=== PATIENT | male | born 1940 | race Caucasian/White ===

== ENCOUNTER 2019-02-24 14:07 | Inpatient (IN) | payer OTHER, SELFPAY ==
[~2019-02-24] VITALS: Ht 177.8 cm; Wt 82.5 kg
[~2019-02-24 14:07] MED LIST: ASPI81CH PO; ATOR10 PO; GABA300 PO; INDOMETHACIN ER75 MG PO; INSULANPEN SC; LOSARTAN POTAS100 MG PO; Novolog100 UNIT/1 SC; POTCHL20ER PO; Zantac150 MG PO
[2019-02-24 14:51] LABS: BASOPHILS ABSOLUTE AUTO 0.03 K/mm3 (0.00-0.23); BASOPHILS PERCENT AUTO 0 % (0-2); EOSINOPHILS ABSOLUTE AUTO 0.04 K/mm3 (0.00-0.68); EOSINOPHILS PERCENT AUTO 0 % (0-6); Hematocrit 43.9 % (37.0-53.0); IMMATURE GRAN ABSOLUTE AUTO 0.05 K/mm3 (0.00-0.10); IMMATURE GRAN PERCENT AUTO 1 % (0-1); LYMPHOCYTES ABSOLUTE AUTO 0.56 K/mm3 (0.84-5.20); LYMPHOCYTES PERCENT AUTO 6 % (21-46); MONOCYTES ABSOLUTE AUTO 0.76 K/mm3 (0.16-1.47); MONOCYTES PERCENT AUTO 8 % (4-13); Mean Corpuscular HGB 29.4 pg (26.0-34.0); Mean Corpuscular HGB Conc 34.2 g/dL (31.5-36.5); Mean Corpuscular Volume 86 fL (80-100); Mean Platelet Volume 9.8 fL (9.1-12.4); NEUTROPHILS ABSOLUTE AUTO 8.41 K/mm3 (1.96-9.15); NEUTROPHILS PERCENT AUTO 85 % (41-73); Platelet Count 289 K/mm3 (150-400); RDW Coefficient Variation 13.3 % (11.7-14.2); RDW Standard Deviation 41.9 fL (35.1-46.3); Red Blood Cell Count 5.11 M/mm3 (4.30-5.90); White Blood Cell Count 9.85 K/mm3 (4.00-11.30)
[2019-02-24 15:06] LABS: Alanine Aminotransfer (ALT/SGP 23 U/L (12-78); Albumin, Blood 3.7 g/dL (3.4-5.0); Albumin/Globulin Ratio 0.9 (0.8-1.8); Alk Phos 100 U/L (50-136); Anion Gap 9 mmol/L (6-16); Aspartate Aminotrans (AST/SGOT 21 U/L (12-37); Bilirubin, Total 0.7 mg/dL (0.1-1.0); Blood Urea Nitrogen 27 mg/dL (8-24); CO2, Blood 26 mmol/L (21-32); Calcium, Blood 8.8 mg/dL (8.5-10.1); Chloride, Blood 102 mmol/L (98-108); Glomerular Filtration Rate >60 (60-); Glucose, Blood 157 mg/dL (70-99); Potassium, Blood 3.1 mmol/L (3.5-5.5); Sodium, Blood 137 mmol/L (136-145); Total Protein, Blood 7.7 g/dL (6.4-8.2)
[2019-02-24 15:48] LABS: Source, Urine Clean Catch
[2019-02-24 15:57] LABS: Appearance, Urine Clear (Clear); Bilirubin, Urine Neg (Neg); Blood, Urine 3+ (Neg); Color, Urine Yellow (P-Yellow); Glucose Qualitative, Urine Neg (Neg); Ketones, Urine Neg (Neg); Leukocyte Esterase, Urine Neg (Neg); Nitrite, Urine Neg (Neg); Protein, Urine Neg (Neg); Specific Gravity, Urine 1.015 (1.003-1.022); Urobilinogen, Urine NORM (Normal)
[2019-02-24 16:11] LABS: Bacteria Few /hpf; Mucus Light (0-Heavy); Squamous Epithelial Cells Rare /hpf (Few); White Blood Cells, Urine Not Seen /hpf (0-5)
[2019-02-24] MEDS ORDERED: METF500 PO (17:06)
[2019-02-24] MEDS ORDERED: CHLO25B PO (17:06)
--- NOTE | 2019-02-24 18:46 | NUR ---
PT HAS BEEN SETTLED INTO ROOM. AOX4 AND COOPERATIVE OF CARE. PT DEMONSTRATED WEAKNESS IN HIS ARMS AND IS SLOW TO SIT UP IN BED. PT IS SLOW AND NEEDS TO BE A ONE PERSON AT BEDSIDE. CALLS APPROPRIATELY CALL LIGHT WITHIN REACH.
--- NOTE | 2019-02-25 05:47 | NUR ---
SHIFT SUMMARY PT HAS SLEPT WELL DURING THE NIGHT, HAS LOW GRADE TEMP THIS AM. IVF'S HAVE RUN CONTINUOUS T/O NIGHT. PT UP WITH SBA TO USE URINAL AT BEDSIDE DUE TO WEAKNESS. HAS OFFERED NO C/O'S. WILL CONTINUE TO MONITOR.
[2019-02-25 08:02] LABS: BASOPHILS ABSOLUTE AUTO 0.03 K/mm3 (0.00-0.23); BASOPHILS PERCENT AUTO 1 % (0-2); EOSINOPHILS ABSOLUTE AUTO 0.06 K/mm3 (0.00-0.68); EOSINOPHILS PERCENT AUTO 1 % (0-6); Hematocrit 38.1 % (37.0-53.0); Hemoglobin 13.1 g/dL (13.5-17.5); IMMATURE GRAN ABSOLUTE AUTO 0.02 K/mm3 (0.00-0.10); IMMATURE GRAN PERCENT AUTO 0 % (0-1); LYMPHOCYTES ABSOLUTE AUTO 0.89 K/mm3 (0.84-5.20); LYMPHOCYTES PERCENT AUTO 18 % (21-46); MONOCYTES PERCENT AUTO 16 % (4-13); Mean Corpuscular HGB 29.3 pg (26.0-34.0); Mean Corpuscular HGB Conc 34.4 g/dL (31.5-36.5); Mean Corpuscular Volume 85 fL (80-100); Mean Platelet Volume 9.8 fL (9.1-12.4); NEUTROPHILS ABSOLUTE AUTO 3.24 K/mm3 (1.96-9.15); NEUTROPHILS PERCENT AUTO 64 % (41-73); Platelet Count 215 K/mm3 (150-400); RDW Coefficient Variation 13.4 % (11.7-14.2); Red Blood Cell Count 4.47 M/mm3 (4.30-5.90); White Blood Cell Count 5.04 K/mm3 (4.00-11.30)
[2019-02-25 08:20] LABS: Anion Gap 5 mmol/L (6-16); Blood Urea Nitrogen 22 mg/dL (8-24); Bun/Creatinine Ratio 24.2 (12.0-20.0); CO2, Blood 28 mmol/L (21-32); Calcium, Blood 8.4 mg/dL (8.5-10.1); Chloride, Blood 104 mmol/L (98-108); Creatinine, Blood 0.91 mg/dL (0.60-1.20); Glomerular Filtration Rate >60 (60-); Glucose, Blood 133 mg/dL (70-99); Sodium, Blood 137 mmol/L (136-145)
--- NOTE | 2019-02-25 17:10 | NUR ---
PT AOX4 AND COOPERATIVE OF CARE. PT IS INDEPENDENT RESTROOM AND HAS IMPROVED IN STRENGTH. PT CALLS APPROPRIATELY AND USES CALL LIGHT. PT WAS GOING TO DISCHARGE, BUT WAS FOUND TO HAVE A POSITIVE BLOOD CULTURE.PT IS NOW STAYING TO RECIEVE IV ANTIBOTICS PER EMAR. WILL CONTINUE TO MONITOR.
--- NOTE | 2019-02-26 06:26 | NUR ---
SHIFT SUMMARY PT A/O SBA IF OOB USING URINAL. HE WAS ABLE TO SLEEP T/O NIGHT. NO C/O PAIN. CALL LIGHT IN REACH.
--- NOTE | 2019-02-26 17:39 | NUR ---
PT AOX4 AND COOPERATIVE OF CARE. PT DENIES ANY PAIN AND IS FEELING MUCH STRONGER TODAY. PT HAS BEEN A STANDBY ASSIST TO STAND HELPING WITH LINES. PT USES HIS URINAL AND CALLS APPROPRIATELY. NO DISTRESS NOTED WILL CONTINUE TO MONITOR.
[2019-02-26 22:19] LABS: Campylobacter Sp Not Detected (NOT DETECT); Plesiomonas Shigelloides Not Detected (NOT DETECT); Salmonella Sp Not Detected (NOT DETECT); Yersinia Enterocolitica Not Detected (NOT DETECT)
[2019-02-26 22:20] LABS: Adenovirus F 40/41 Not Detected (NOT DETECT); Astrovirus Not Detected (NOT DETECT); Cryptosporidium Not Detected (NOT DETECT); Cyclospora Cayetanensis Not Detected (NOT DETECT); E. Coli O157 Not Detected (NOT DETECT); Entamoeba Histolytica Not Detected (NOT DETECT); Enteroaggregative E. coli-EAEC Not Detected (NOT DETECT); Enteropathogenic E. coli-EPEC Not Detected (NOT DETECT); Enterotoxigenic E. coli-ETEC Not Detected (NOT DETECT); Giardia Lamblia Not Detected (NOT DETECT); Norovirus GI/GII Detected (NOT DETECT); Rotavirus A Not Detected (NOT DETECT); Sapovirus Not Detected (NOT DETECT); Shiga Toxin-prod E. coli-STEC Not Detected (NOT DETECT); Shigella/Enteroin E. coli-EIEC Not Detected (NOT DETECT); Vibrio Cholerae Not Detected (NOT DETECT); Vibrio Sp Not Detected (NOT DETECT)
--- NOTE | 2019-02-27 05:20 | NUR ---
SHIFT SUMMARY: PT IS ALERT AND ORIENTED. PT IS CALM AND COOPERATIVE WITH CARE. PT CALLS APPROPRIATELY. PT IS A STANDBY ASSIST, USING THE URINAL INDEPENDENTLY. FLUIDS RUNNING ORDERED. PT DENIES PAIN, NAUSEA, VOMITING, AND SOB. PT DID NOT SLEEP MUCH OVERNIGHT. POSSIBLE DISCHARGE TODAY. NO ACUTE CHANGES OR COMPLICATIONS THIS SHIFT. BED IN LOW POSITION, CALL LIGHT WITHIN REACH. WILL REPORT TO DAY NURSE.
[2019-02-27 11:42] LABS: Vancomycin, Trough 16.8 ug/mL (5.0-10.0)
--- NOTE | 2019-02-27 16:20 | NUR ---
DISCHARGE DISCHARGE MEDICATIONS AND INSTRUCTIONS EXPLAINED TO PATIENT. PATIENT STATED UNDERSTANDING. SENIOR POLICY ADVISOR SHERI FROM [facility] TO CALL PATIENT AT HOME WITH FOLLOW UP APPOINTMENT. IV REMOVED WITHOUT DIFFICULTY. PATIENT TRANSFERED TO PRIVATE VEHICLE VIA WHEELCHAIR. BELONGINGS WITH PATIENT.
== END 2019-02-27 16:11 | disposition home or self-care (01) | DRG 392 ==
LOC: ER 14:07 → MEDS 14:08
PROVIDERS: Physician Assistant; ADMIT Internal Medicine
DX: A08.11 Acute gastroenteropathy due to Norwalk agent (principal); E78.5 Hyperlipidemia, unspecified; Z87.891 Personal history of nicotine dependence; I49.1 Atrial premature depolarization; Z79.82 Long term (current) use of aspirin; Z79.4 Long term (current) use of insulin; I10 Essential (primary) hypertension; E87.6 Hypokalemia; E11.40 Type 2 diabetes mellitus with diabetic neuropathy, unspecified
CPT/HCPCS: 0097U; 36415; 71046; 80048; 80053; 80202; 81001; 82947; 83605; 84145; 85025; 87040; 93005; 93010; 96365; 96366; 96372; 96375; 97110; 97161; 97165; 97535; 99285-25; A9270; G0378; J1650; J3370; J3480; J7120

== ENCOUNTER 2019-09-10 21:49 | Emergency (ER) | payer OTHER ==
[~2019-09-10] VITALS: Ht 177.8 cm; Wt 85.7 kg
[~2019-09-10 21:49] MED LIST changes: +CHLO25B PO; +METF500 PO
== END 2019-09-10 23:33 | disposition home or self-care (01) ==
LOC: ER 21:49
DX: R04.0 Epistaxis (principal); E11.40 Type 2 diabetes mellitus with diabetic neuropathy, unspecified; I10 Essential (primary) hypertension; Z79.4 Long term (current) use of insulin; Z79.899 Other long term (current) drug therapy; Z79.82 Long term (current) use of aspirin
CPT/HCPCS: 99283

== ENCOUNTER 2023-01-10 16:46 | Emergency (ER) | payer OTHER ==
[~2023-01-10] VITALS: Ht 177.8 cm; Wt 87.1 kg
[2023-01-10 17:04] VITALS: BP 145/78
[2023-01-10] MEDS ORDERED: PRAMIPEXOLE D0.25 M1 PO (19:58)
[2023-01-10] MEDS ORDERED: AMLODIPINE BESYL5 MG PO (19:59)
== END 2023-01-10 20:32 | disposition home or self-care (01) ==
LOC: ER 16:46
DX: M25.561 Pain in right knee (principal); E11.9 Type 2 diabetes mellitus without complications; I10 Essential (primary) hypertension; W18.40XA Slipping, tripping and stumbling without falling, unspecified, initial encounter; Z79.4 Long term (current) use of insulin; Z79.82 Long term (current) use of aspirin; Z79.899 Other long term (current) drug therapy
CPT/HCPCS: 73562-RT; 99283-25